=== PATIENT | female | born 1985 ===

== ENCOUNTER 2018-06-21 18:20 | Emergency (ER) | payer MEDICAID ==
[2018-06-21 18:51] VITALS: RESP 18; TEMP 98.3; BMI 26.4
--- NOTE | 2018-06-21 19:23 | ED PDOC ---
Arrival/HPI - General Chief Complaint: Female Genitourinary Time Seen by Provider: 06/21/18 18:39 Historian: Patient, Spouse - History of Present Illness Narrative History of Present Illness (Text): This is a 33 year old female with PMH of nephrolithiasis, recent UTI who presents with a 24 hour history of pain on urination, associated with right sided back pain and right groin pain. She reports increased urinary frequency for the past 24 hours, with a feeling of bladder fullness but minimal urine output. She also states her urine has been pink tinged. Pt also reports pain in the right lower back, which radiates to the right groin. Pain is described as constant, 8/10, sharp in nature, without and exacerbating factors. Pt took Advil this afternoon which reduced the pain to a 6/10. She had pain on urination with itchiness 1 month ago, when her PMD prescribed her antibiotics (name unknown). She completed the antibiotics and felt better, but now symptoms returned. She denies fever, chills, chest pain, sob, abdominal pain, n/v/d, hematochezia, melena, vaginal discharge, dyspareunia. PMD: Sergio PMH: nephrolithiasis, UTI PSH: C/S 2005, tubal ligation 2006 Meds: none Allx: NKDA Social hx: denies etoh, smoking or illicit drug use STRATEGIC BUSINESS DEVELOPMENT hx: FDLMP 06/12, lasted until the 25th (normal as per pt). Sex hx: pt has unprotected sex with her (last after her period) Time/Duration: 24 hours Symptom Onset: Sudden Symptom Course: Unchanged Quality: Pressure (suprapubic), Other (sharp pain on urinatin and in the right back and rigth groin) Severity Level: 8 Past Medical History - Provider Review Nursing Documentation Reviewed: Yes - Tetanus Immunization Tetanus Immunization: Unknown - Past Medical History Past Medical History: No Previous - Psychiatric Hx Depression: No Hx Emotional Abuse: No Hx Physical Abuse: No Hx Substance Use: No - Past Surgical History Past Surgical History: No Previous - Surgical History Hx Section: Yes - Anesthesia Hx Anesthesia: Yes Hx Anesthesia Reactions: No Hx Malignant Hyperthermia: No - Suicidal Assessment Feels Threatened In Home Enviroment: No Family/Social History - Physician Review Nursing Documentation Reviewed: Yes Family/Social History: Unknown Family HX Smoking Status: Never Smoked Hx Alcohol Use: No Hx Substance Use: No Hx Substance Use Treatment: No Allergies/Home Meds Allergies/Adverse Reactions: Allergies No Known Allergies Allergy (Verified 02/26/12 10:54) Review of Systems - Review of Systems Constitutional: Normal Eyes: Normal ENT: Normal Respiratory: Normal Cardiovascular: Normal Gastrointestinal: Normal Genitourinary Female: Dysuria, Frequency, Hematuria, Urine Output Changes Musculoskeletal: Back Pain Skin: Normal Neurological: Normal Endocrine: Normal Psychiatric: Normal Physical Exam Vital Signs Temp Pulse Resp BP Pulse Ox 06/21/18 18:43 98.3 F 82 18 124/54 L 96 Temperature: Afebrile Blood Pressure: Normal Pulse: Regular Respiratory Rate: Normal Appearance: Positive for: Well-Appearing, Non-Toxic Pain Distress: None Mental Status: Positive for: Alert and Oriented X 3 - Systems Exam Head: Present: Atraumatic, Normocephalic Extroacular Muscles: Present: EOMI Conjunctiva: Present: Normal Mouth: Present: Moist Mucous Membranes Respiratory/Chest: Present: Clear to Auscultation. No: Respiratory Distress, Accessory Muscle Use, Wheezes, Rales, Rhonchi, Tachypneic Cardiovascular: Present: Regular Rate and Rhythm, Normal S1, S2 Abdomen: Present: Normal Bowel Sounds, Other ((+) right groin tenderness to palpation; (+) suprapubic "pressure" on palpation). No: Tenderness, Distention, Peritoneal Signs, Rebound, Guarding, Hernias Back: Present: Normal Inspection. No: CVA Tenderness, Midline Tenderness, Paraspinal Tenderness Upper Extremity: Present: Normal Inspection. No: NORMAL PULSES Lower Extremity: Present: Normal Inspection. No: CALF TENDERNESS, NORMAL PULSES Neurological: Present: GCS=15 Skin: Present: Warm, Dry Psychiatric: Present: Alert, Oriented x 3 Medical Decision Making ED Course and Treatment: 33 year old female with PMH of kidney stone and recent UTI. DDx includes pyelonephritis, UTI, nephrolithias. Will do UA with urine test and Urine culture 06/21/18 19:46 UA shows UTI with large amount of blood. Will do CBC, CMP, abdominal ct without po or IV contrast. Will give NS IVF 1L bolus. - Lab Interpretations I have reviewed the lab results: Yes Interpretation: Abnormal lab values (WBC 13.4, with left shift. Hgb is 11.8.) Disposition/Present on Arrival - Present on Arrival Any Indicators Present on Arrival: No History of DVT/PE: No History of Uncontrolled Diabetes: No Urinary Catheter: No History of Decub. Ulcer: No History Surgical Site Infection Following: None - Disposition Have Diagnosis and Disposition been Completed?: Yes Diagnosis: UTI (urinary tract infection) Disposition: HOME/ ROUTINE Disposition Time: 22:27 Patient Plan: Discharge Condition: STABLE Discharge Instructions (ExitCare): Urinary Tract Infections in Adults Additional Instructions: Return for any new or worsening symptoms. Stay well hydrated (water). Follow up with your primary care doctor as discussed. SAMMIE COLEMAN, thank you for letting us take care of you today. Your provider was Dr. Seth Mendez and you were treated for urinary tract infection. The emergency medical care you received today was directed at your acute symptoms. If you were prescribed any medication, please fill it and take as directed. It may take several days for your symptoms to resolve. Return to the Emergency Department if your symptoms worsen, do not improve, or if you have any other problems. Please contact your doctor or call one of the physicians/clinics you have been referred to that are listed on the Patient Visit Information form that is included in your discharge packet. Bring any paperwork you were given at discharge with you along with any medications you are taking to your follow up visit. Our treatment cannot replace ongoing medical care by a primary care provider outside of the emergency department. Thank you for allowing the [facility] team to be part of your care today. If you had an X-Ray or CT scan: A Radiologist will review the ED reading if any change in treatment is needed we will contact you. If you had a blood, urine, or wound culture: It will take several days for the results, if any change in treatment is needed we will contact you. If you had an STI test: It will take 48 hours for the results. Please call after 1 week if you have not heard back. Prescriptions: Ciprofloxacin [Cipro] 500 mg PO BID 7 Days #14 tab Forms: [employer] (Romansh), WORK NOTE
[2018-06-21 19:37] LABS: URINE BILIRUBIN NEGATIVE (NEGATIVE); URINE BLOOD LARGE (NEGATIVE); URINE GLUCOSE (UA) NEGATIVE (NEGATIVE); URINE LEUKOCYTE ESTERASE MODERATE Leu/uL (NEGATIVE); URINE PROTEIN 100 mg/dL (<30 mg/dL); URINE UROBILINOGEN 0.2 E.U./dL (<1 E.U./dL)
[2018-06-21 19:38] LABS: URINE APPEARANCE SL CLOUDY (CLEAR); URINE COLOR YELLOW (YELLOW)
[2018-06-21 19:39] LABS: URINE RBC TNTC /hpf (0-2)
[2018-06-21 19:40] LABS: URINE BACTERIA SMALL (NEG); URINE EPITHELIAL CELLS MANY /hpf (0-5)
[2018-06-21] MEDS ORDERED: Sodium Chloride 0.9% 1,000 ML IV STA (19:45)
[2018-06-21 20:16] LABS: BASO # 0.06 K/mm3 (0.0-2.0); BASO % 0.4 % (0.0-3.0); EOS # 0.2 (0.0-0.7); EOS % 1.3 % (1.5-5.0); GRAN # 9.72 (1.4-6.5); GRAN % 72.4 % (50.0-68.0); HEMOGLOBIN 11.8 g/dL (12.0-16.0); LYMPH # 2.7 (1.2-3.4); MEAN CELL VOLUME 92.7 fl (80.0-105.0); MEAN CORPUSCULAR HEMOGLOBIN 30.6 pg (25.0-35.0); MEAN PLATELET VOLUME 9.5 fl (7.0-11.0); MONO # 0.8 (0.1-0.6); MONO % 5.9 % (1.0-6.0); RBC 3.86 10^6/uL (3.5-6.1); RED CELL DISTRIBUTION WIDTH 12.8 % (11.5-14.5); WHITE BLOOD COUNT 13.4 10^3/uL (4.5-11.0)
[2018-06-21 20:22] LABS: ALB/GLOB RATIO 1.3 (1.1-1.8); ALBUMIN 4.1 g/dL (3.0-4.8); ALT/SGPT 20 U/L (7-56); AST/SGOT 55 U/L (14-36); BLOOD UREA NITROGEN 10 mg/dL (7-21); CALCIUM 9.1 mg/dL (8.4-10.5); GFR NON-AFRICAN AMERICAN > 60
[2018-06-21] MEDS ORDERED: cefTRIAXone 1 gm 1 GM/100 ML BAG IVPB STA (20:30)
--- NOTE | 2018-06-21 21:29 | ED PDOC ---
Physical Exam Vital Signs Reviewed: Yes Vital Signs Temp Pulse Resp BP Pulse Ox 06/21/18 18:43 98.3 F 82 18 124/54 L 96 Temperature: Afebrile Blood Pressure: Hypotensive Pulse: Regular Respiratory Rate: Normal Appearance: Positive for: Well-Appearing, Non-Toxic, Comfortable Pain Distress: None Mental Status: Positive for: Alert and Oriented X 3 Medical Decision Making ED Course and Treatment: 06/21/18 22:06 Patient endorsed to me by Dr. Harrison. Patient presented with UTI, and is p ending CT to rule out kidney stones. Patient will likely be discharged. 06/21/18 22:25 patient seen and examined by myself, patient appears nontoxic and stable for discharge, patient has been informed of results and has been provided with explanation for reasons to return to the ED for re-eval and to follow up with her pcp. - Lab Interpretations Lab Results: 06/21/18 19:57 06/21/18 19:57 Lab Results 06/21/18 19:57: Sodium 139, Potassium 3.9, Chloride 104, Carbon Dioxide 26, Anion Gap 12, BUN 10, Creatinine 0.7, Est GFR ( Amer) > 60, Est GFR (Non- Af Amer) > 60, Random Glucose 97, Calcium 9.1, Total Bilirubin 0.8, AST 55 H, AL T 20, Alkaline Phosphatase 68, Total Protein 7.3, Albumin 4.1, Globulin 3.2, Albumin/Globulin Ratio 1.3 06/21/18 19:57: WBC 13.4 H, RBC 3.86, Hgb 11.8 L, Hct 35.8 L, MCV 92.7, MCH 30.6, MCHC 33.0, RDW 12.8, Plt Count 376, MPV 9.5, Gran % 72.4 H, Lymph % (Auto) 20.0 L, [place] % (Auto) 5.9, Eos % (Auto) 1.3 L, Baso % (Auto) 0.4, Gran # 9.72 H, Lymph # (Auto) 2.7, [place] # (Auto) 0.8 H, Eos # (Auto) 0.2, Baso # (Auto) 0.06 06/21/18 19:19: Urine Color Yellow, Urine Appearance Sl cloudy, Urine pH 6.0, Ur Specific [place] >= 1.030, Urine Protein 100 H, Urine Glucose (UA) Negative, Urine Ketones Negative, Urine Blood Large H, Urine Nitrate Negative, Urine Bilirubin Negative, Urine Urobilinogen 0.2, Ur Leukocyte Esterase Moderate H, Urine RBC Tntc, Urine WBC 10 - 15, Ur Epithelial Cells Many, Urine Bacteria Small - RAD Interpretation Narrative RAD Interpretations (Text): 06/21/18 22:18 CT Abdomen and Pelvis Without IV contrast CLINICAL HISTORY: Rlq pain TECHNIQUE: Axial computed tomography images of the abdomen and pelvis without intravenous contrast. 261.80 mGy-cm CONTRAST: No IV contrast. COMPARISON: None provided. FINDINGS: LUNG BASES: The lung bases appear clear. No pleural effusions are seen. LIVER: Unremarkable. GALLBLADDER AND BILE DUCTS: The gallbladder appears within normal limits. No radioopaque gallstones are seen. No biliary ductal dilatation is evident. PANCREAS: Unremarkable. SPLEEN: Unremarkable. ADRENAL GLANDS: Unremarkable. KIDNEYS, URETERS, AND BLADDER: The kidneys appear within normal limits. There is no hydronephrosis or hydroureter. No urinary calculi are seen. STOMACH AND BOWEL: Unremarkable appearance of the stomach and bowel. No evidence of bowel obstruction. No evidence suggesting enteritis or colitis. APPENDIX: No evidence of acute appendicitis on CT examination. PERITONEUM: No free fluid. No free air. LYMPH NODES: No lymphadenopathy is evident. REPRODUCTIVE: Unremarkable as visualized. VASCULATURE: No evidence of abdominal aortic aneurysm. BONES: No aggressive appearing osseous lesion. No acute osseous pathology evident. IMPRESSION: No acute intra-abdominal or pelvic abnormality on this noncontrast study. If symptoms continue consider follow-up with CT performed with IV and oral contrast Radiology Orders: 06/21/18 19:40 ABD & PELVIS W/O PO OR IV CONT [CT] Stat Cleaners: Radiologist - Medication Orders Current Medication Orders: Discontinued Medications Sodium Chloride (Sodium Chloride 0.9%) 1,000 mls @ 999 mls/hr IV .Q1H1M STA Stop: 06/21/18 20:45 Last Admin: 06/21/18 20:02 Dose: 999 mls/hr eMAR Start Stop Document 06/21/18 20:02 HI (Rec: 06/21/18 20:02 HI [id number]) Intravenous Solution Start Date 06/21/18 Start Time 20:02 Ceftriaxone Sodium (Rocephin 1 Gram Ivpb) 1 gm in 100 mls @ 100 mls/hr IVPB STAT STA; Protocol Stop: 06/21/18 21:29 Disposition/Present on Arrival - Present on Arrival Any Indicators Present on Arrival: No History of DVT/PE: No History of Uncontrolled Diabetes: No Urinary Catheter: No History of Decub. Ulcer: No History Surgical Site Infection Following: None - Disposition Have Diagnosis and Disposition been Completed?: Yes Diagnosis: UTI (urinary tract infection) Disposition: HOME/ ROUTINE Disposition Time: 22:27 Patient Plan: Discharge Patient Problems: Current Active Problems Problem Status Onset UTI (urinary tract infection) Acute Condition: STABLE Discharge Instructions (ExitCare): Urinary Tract Infections in Adults Additional Instructions: Return for any new or worsening symptoms. Stay well hydrated (water). Follow up with your primary care doctor as discussed. SAMMIE COLEMAN, thank you for letting us take care of you today. Your provider was Dr. Seth Mendez and you were treated for urinary tract infection. The emergency medical care you received today was directed at your acute symptoms. If you were prescribed any medication, please fill it and take as directed. It may take several days for your symptoms to resolve. Return to the Emergency Department if your symptoms worsen, do not improve, or if you have any other problems. Please contact your doctor or call one of the physicians/clinics you have been referred to that are listed on the Patient Visit Information form that is included in your discharge packet. Bring any paperwork you were given at discharge with you along with any medications you are taking to your follow up visit. Our treatment cannot replace ongoing medical care by a primary care provider outside of the emergency department. Thank you for allowing the [facility] team to be part of your care today. If you had an X-Ray or CT scan: A Radiologist will review the ED reading if any change in treatment is needed we will contact you. If you had a blood, urine, or wound culture: It will take several days for the results, if any change in treatment is needed we will contact you. If you had an STI test: It will take 48 hours for the results. Please call after 1 week if you have not heard back. Prescriptions: Ciprofloxacin [Cipro] 500 mg PO BID 7 Days #14 tab Forms: [employer] (Faroese), WORK NOTE
[2018-06-21 23:34] VITALS: BP 124/70; PULSE 76; O2SAT 100
--- NOTE | 2018-06-22 08:44 | CT ---
Date of service: 06/21/2018 PROCEDURE: CT Abdomen and Pelvis without intravenous contrast HISTORY: groin pain, dysuria, hematuria COMPARISON: None. TECHNIQUE: Technique. Contrast dose: Radiation dose: Total exam DLP = 261.8 mGy-cm. This CT exam was performed using one or more of the following dose reduction techniques: Automated exposure control, adjustment of the mA and/or kV according to patient size, and/or use of iterative reconstruction technique. FINDINGS: LOWER THORAX: Bilateral breast augmentation. LIVER: Unremarkable. No gross lesion or ductal dilatation. GALLBLADDER AND BILE DUCTS: Unremarkable. PANCREAS: Unremarkable. No gross lesion or ductal dilatation. SPLEEN: Unremarkable. ADRENALS: Unremarkable. No mass. KIDNEYS AND URETERS: Unremarkable. No hydronephrosis. No solid mass. VASCULATURE: Unremarkable. No aortic aneurysm. No aortic atherosclerotic calcification or mural plaque present. BOWEL: Unremarkable. No obstruction. No gross mural thickening. APPENDIX: Unremarkable. Normal appendix. PERITONEUM: Unremarkable. No free fluid. No free air. LYMPH NODES: Unremarkable. No enlarged lymph nodes. BLADDER: Unremarkable. REPRODUCTIVE: Unremarkable. BONES: No acute fracture. OTHER FINDINGS: None. IMPRESSION: Unremarkable non contrast enhanced CT of the abdomen and pelvis.
== END 2018-06-21 22:35 | disposition home or self-care (01) ==
LOC: ED 18:20
DX: N39.0 Urinary tract infection, site not specified (principal)
CPT/HCPCS: 74176; 80053; 81001; 85025; 87086; 87181; 96365; 99283; J0696; J7030